=== PATIENT | male | born 1955 | race Caucasian/White ===

== ENCOUNTER 2020-09-10 23:38 | Inpatient (IN) | payer MEDICARE, SELFPAY ==
[2020-09-11 00:10] LABS: BASOPHIL 0.3 % (0-2); EOSINOPHIL 1.5 % (0-5); HGB 17.4 g/dl (13.2-18.0); LYMPHOCYTE 37.6 % (15-48); MCH 28.1 pg (25.0-31.0); MCV 93.5 fL (78.0-100.0); MONOCYTE 6.9 % (0-12); MPV 10.5 fL (6.0-9.5); NEUTROPHIL 53.1 % (41-80); NRBC 0; PLT 218 K/uL (150-400); RDW 19.4 % (11.5-14.0)
[2020-09-11 00:27] LABS: ALBUMIN 3.8 g/dL (3.4-5.0); BILIRUBIN - TOTAL 0.3 mg/dL (0.2-1.0); BUN/CREAT RATIO (CALC) 16.9 RATIO; CREATININE 1.24 mg/dL (0.67-1.17); POTASSIUM 4.2 mmol/L (3.5-5.1); TOTAL PROTEIN 7.8 g/dL (6.4-8.2)
[2020-09-11 00:38] LABS: LACTIC ACID 7.1 mmol/L (0.4-1.9)
[2020-09-11 00:42] LABS: WBC 15.5 K/uL (4.0-10.5)
[2020-09-11 00:49] LABS: INR 1.02 (0.9-1.2); PROTHROMBIN TIME 12.7 SECONDS (11.4-13.6); PTT 23.5 SECONDS (22.2-34.7)
[2020-09-11 01:04] LABS: D-DIMER 5.24 ug/mLFEU (0.00-0.41)
[2020-09-11 01:44] LABS: MAGNESIUM 2.5 mg/dL (1.8-2.4); PHOSPHORUS 7.4 mg/dL (2.6-4.7)
[2020-09-11 02:01] LABS: BILIRUBIN NEGATIVE (NEGATIVE); BLOOD 3+ Ery/uL (NEGATIVE); CLARITY CLEAR (CLEAR); COLOR YELLOW (YELLOW); GLUCOSE (U) NORMAL (NORMAL); LEUKOCYTES NEGATIVE Leu/uL (NEGATIVE); NITRITE NEGATIVE (NEGATIVE); PROTEIN 1+ mg/dL (NEGATIVE); UROBILINOGEN 0.2 mg/dL (0.2-1.0)
[2020-09-11 02:09] LABS: BACTERIA TRACE; MUCOUS TRACE; URINARY RBC 20-50
[2020-09-11] MEDS ORDERED: AMIODARONE HCL200 MG PO (07:33)
[2020-09-11] MEDS ORDERED: ABILIFY5 MG PO (07:34)
[2020-09-11] MEDS ORDERED: ASPIRIN CHEWABL81 MG PO (07:35)
[2020-09-11] MEDS ORDERED: BUMEX1 MG PO (07:36)
[2020-09-11] MEDS ORDERED: BUSPIRONE HCL15 MG PO (07:40)
[2020-09-11] MEDS ORDERED: LEXAPRO20 MG PO (07:41)
[2020-09-11] MEDS ORDERED: FOLIC ACID1 MG PO (07:42)
[2020-09-11] MEDS ORDERED: ZESTRIL5 MG PO (07:42)
[2020-09-11] MEDS ORDERED: TOPROL XL 25MG25 MG PO (07:44)
[2020-09-11] MEDS ORDERED: K-DUR20 MEQ PO (07:46)
[2020-09-11] MEDS ORDERED: TOPIRAMATE50 MG PO (07:48)
[2020-09-11] MEDS ORDERED: ALDACTONE25 MG PO (07:48)
[2020-09-11] MEDS ORDERED: OXY-IR 5MG5 MG PO (07:51)
[2020-09-11] MEDS ORDERED: CRESTOR10 M1 PO (07:53)
[2020-09-11] MEDS ORDERED: NIACIN500 MG PO (07:54)
[2020-09-11] MEDS ORDERED: NEURONTIN300 MG PO (07:55)
[2020-09-11] MEDS ORDERED: REMERON15 MG PO (07:55)
[2020-09-11] MEDS ORDERED: INCRUSE ELLI62.5 MCG INH (07:56)
[2020-09-11] MEDS ORDERED: VENTOLIN HFA IN18 GM INH (08:01)
[2020-09-11] MEDS ORDERED: ACETAMINOPHEN325 MG PO (08:02)
[2020-09-11] MEDS ORDERED: SENNA8.6 MG PO (08:03)
[2020-09-11] MEDS ORDERED: NITROQUIK SL0.4 MG SL (08:04)
[2020-09-11 09:01] LABS: BUN/CREAT RATIO (CALC) 20.6 RATIO; CREATININE 1.26 mg/dL (0.67-1.17); POTASSIUM 4.3 mmol/L (3.5-5.1)
--- NOTE | 2020-09-11 11:56 | NUR ---
RECENTLY MOVED TO [facility]; ASSIST WITH [facility]S
--- NOTE | 2020-09-11 15:35 | NUR ---
SPOKE WITH PT AND HIS POA, RODNEY PETERSEN, WHO IS ALSO HIS POA. THEY ADVISED THAT PT. WILL GO BACK TO [facility]. HE HAS A ROLLATOR AND CANE. HE IS BEING SEEN BY KAROLINA MARTINEZ WITH [facility]. HE WILL ALSO BE USING [facility].
--- NOTE | 2020-09-11 15:39 | NUR ---
PT. AND BROTHER REQUEST [facility] IF ORDERED.
[2020-09-12 04:37] LABS: BASOPHIL 0.1 % (0-2); HCT 43.5 % (42.0-52.0); HGB 13.4 g/dl (13.2-18.0); LYMPHOCYTE 25.4 % (15-48); MCH 28.3 pg (25.0-31.0); MCHC 30.8 g/dL (32.0-36.0); MCV 91.8 fL (78.0-100.0); MONOCYTE 8.3 % (0-12); MPV 11.1 fL (6.0-9.5); NEUTROPHIL 64.8 % (41-80); NRBC 0; PLT 120 K/uL (150-400); RBC 4.74 M/uL (4.70-6.00); RDW 18.6 % (11.5-14.0); WBC 8.1 K/uL (4.0-10.5)
[2020-09-12 05:09] LABS: BUN/CREAT RATIO (CALC) 21.7 RATIO; CREATININE 1.29 mg/dL (0.67-1.17); POTASSIUM 3.4 mmol/L (3.5-5.1)
[2020-09-12] MEDS ORDERED: NIACIN500 M1 PO (06:53)
--- NOTE | 2020-09-12 12:05 | NUR ---
PT. TO [facility] D/C HOME ON TUESDAY, PLEASE CONTACT [facility] TO ADVISE OF D/C. [phone].
[2020-09-12] MEDS ORDERED: PLAVIX75 MG PO (12:07)
[2020-09-12] MEDS ORDERED: IMDUR 30MG TABL30 MG PO (12:10)
[2020-09-12] MEDS ORDERED: NIASPAN1000 MG PO ×2 (12:13→14:51)
[2020-09-12] MEDS ORDERED: THERA M PLUS T1 EACH PO ×2 (12:18→14:51)
[2020-09-12] MEDS ORDERED: LASIX40 MG PO (12:20)
--- NOTE | 2020-09-12 13:55 | NUR ---
PT. IS EXPECTED TO D/C OVER THE WEEKEND. HE IS GOING TO GO BACK TO [facility] PER HIS BROTHER. A REFERRAL HAS BEEN MADE TO [facility] FOR NURSING ASSESSMENT. PLEASE CALL [facility] AT [phone] IF PT. D/C OVER WEEKEND.
--- NOTE | 2020-09-12 14:06 | NUR ---
HH REFERRAL SENT THROUGH [facility].
[2020-09-12] MEDS ORDERED: TOPROL XL 25MG25 MG PO (14:51)
[2020-09-12] MEDS ORDERED: BUSPIRONE HCL15 MG PO (14:51)
[2020-09-12] MEDS ORDERED: NEURONTIN300 MG PO (14:51)
[2020-09-12] MEDS ORDERED: SENNA8.6 MG PO (14:51)
[2020-09-12] MEDS ORDERED: BUMEX1 MG PO (14:51)
[2020-09-12] MEDS ORDERED: ASPIRIN CHEWABL81 MG PO (14:51)
[2020-09-12] MEDS ORDERED: OXY-IR 5MG5 MG PO (14:51)
[2020-09-12] MEDS ORDERED: REMERON15 MG PO (14:51)
[2020-09-12] MEDS ORDERED: FOLIC ACID1 MG PO (14:51)
[2020-09-12] MEDS ORDERED: K-DUR20 MEQ PO (14:51)
[2020-09-12] MEDS ORDERED: CRESTOR10 M1 PO (14:51)
[2020-09-12] MEDS ORDERED: INCRUSE ELLI62.5 MCG INH (14:51)
[2020-09-12] MEDS ORDERED: ENTRESTO 49 MG1 EACH PO (14:51)
[2020-09-12] MEDS ORDERED: NITROQUIK SL0.4 MG SL (14:51)
[2020-09-12] MEDS ORDERED: TOPIRAMATE50 MG PO (14:51)
[2020-09-12] MEDS ORDERED: VENTOLIN HFA IN18 GM INH (14:51)
[2020-09-12] MEDS ORDERED: ALDACTONE25 MG PO (14:51)
[2020-09-12] MEDS ORDERED: ABILIFY5 MG PO (14:51)
[2020-09-12] MEDS ORDERED: LEXAPRO20 MG PO (14:51)
[2020-09-12] MEDS ORDERED: AMIODARONE HCL200 MG PO (14:51)
[2020-09-13 04:57] LABS: BUN/CREAT RATIO (CALC) 19.4 RATIO; CREATININE 1.24 mg/dL (0.67-1.17); POTASSIUM 3.5 mmol/L (3.5-5.1)
--- NOTE | 2020-09-13 15:47 | NUR ---
[address] [facility] WITH HOME HEALTH SERVICES. IV DC'D AT THIS TIME. PT TRANSPORTED BY WHEELCHAIR TO [facility]. DISCHARGED INSTRUCTIONS REVIEWED WITH PT, VERBALIZED UNDERSTANDING.
== END 2020-09-13 15:30 | disposition home health service (06) | DRG 280 ==
LOC: FER 23:38 → FICU 09-11 05:12 → FTCU 09-12 17:36
PROVIDERS: Allergy & Immunology Allergy; Emergency Medicine Emergency Medical Services; Nurse Practitioner; ADMIT Internal Medicine
PROC: 5A09357 Assistance with Respiratory Ventilation, Less than 24 Consecutive Hours, Continuous Positive Airway Pressure (ICD-10-PCS; principal; 2020-09-11)
PROC: B24BZZZ Ultrasonography of Heart with Aorta (ICD-10-PCS; 2020-09-11)
DX: I13.0 Hypertensive heart and chronic kidney disease with heart failure and stage 1 through stage 4 chronic kidney disease, or unspecified chronic kidney disease (principal); I50.23 Acute on chronic systolic (congestive) heart failure; I21.A1 Myocardial infarction type 2; J18.9 Pneumonia, unspecified organism; J96.01 Acute respiratory failure with hypoxia; J96.02 Acute respiratory failure with hypercapnia; J44.0 Chronic obstructive pulmonary disease with (acute) lower respiratory infection; Z20.822 Contact with and (suspected) exposure to COVID-19; I25.10 Atherosclerotic heart disease of native coronary artery without angina pectoris; G40.909 Epilepsy, unspecified, not intractable, without status epilepticus; N18.9 Chronic kidney disease, unspecified; F41.1 Generalized anxiety disorder; F32.9 Major depressive disorder, single episode, unspecified; F17.290 Nicotine dependence, other tobacco product, uncomplicated; Z51.5 Encounter for palliative care; Z86.73 Personal history of transient ischemic attack (TIA), and cerebral infarction without residual deficits; Z98.890 Other specified postprocedural states; Z88.0 Allergy status to penicillin; Z95.1 Presence of aortocoronary bypass graft
CPT/HCPCS: 36415; 36600; 71045; 80048; 80053; 80061; 81001; 82803; 83036; 83605; 83735; 83880; 84100; 84145; 84443; 84484; 85025; 85379; 85610; 85730; 87040; 87088; 93005; 94640; 94660; 96372; 96374; 96375; 97162; 97530-GP; J0696; J1644; J1650; J1940; J2270; J7050; U0002

== ENCOUNTER 2021-05-15 15:28 | Inpatient (IN) | payer MEDICARE ==
[~2021-05-15] VITALS: Ht 162.6 cm; Wt 88.2 kg
[~2021-05-15 15:28] MED LIST: ABILIFY5 MG PO; ACETAMINOPHEN325 MG PO; ALDACTONE25 MG PO; AMIODARONE HCL200 MG PO; ASPIRIN CHEWABL81 MG PO; BUMEX1 MG PO; BUSPIRONE HCL15 MG PO; CRESTOR10 M1 PO; ENTRESTO 49 MG1 EACH PO; FOLIC ACID1 MG PO; IMDUR 30MG TABL30 MG PO; INCRUSE ELLI62.5 MCG INH; K-DUR20 MEQ PO; LASIX40 MG PO; LEXAPRO20 MG PO; NEURONTIN300 MG PO; NIACIN500 M1 PO; NIACIN500 MG PO; NIASPAN1000 MG PO; NITROQUIK SL0.4 MG SL; OXY-IR 5MG5 MG PO; PLAVIX75 MG PO; REMERON15 MG PO; SENNA8.6 MG PO; THERA M PLUS T1 EACH PO; TOPIRAMATE50 MG PO; TOPROL XL 25MG25 MG PO; VENTOLIN HFA IN18 GM INH; ZESTRIL5 MG PO
[2021-05-15 16:02] LABS: BASOPHIL 0.1 % (0-2); EOSINOPHIL 0.8 % (0-5); HGB 14.6 g/dl (13.2-18.0); LYMPHOCYTE 18.9 % (15-48); MCHC 32.4 g/dL (32.0-36.0); MCV 98.7 fL (78.0-100.0); MONOCYTE 5.1 % (0-12); MPV 10.6 fL (6.0-9.5); NEUTROPHIL 74.4 % (41-80); NRBC 0; PLT 130 K/uL (150-400); RBC 4.56 M/uL (4.70-6.00); RDW 13.3 % (11.5-14.0); WBC 10.6 K/uL (4.0-10.5)
[2021-05-15 16:09] LABS: INR 1.13 (0.9-1.2); PROTHROMBIN TIME 13.9 SECONDS (11.8-13.4); PTT 26.4 SECONDS (24.4-34.7)
[2021-05-15 16:10] LABS: D-DIMER 0.4 ug/mLFEU (0.00-0.41)
[2021-05-15 16:22] LABS: PRO-BNP 707 pg/mL (<125)
[2021-05-15 16:33] LABS: BILIRUBIN NEGATIVE (NEGATIVE); BLOOD NEGATIVE Ery/uL (NEGATIVE); CLARITY CLEAR (CLEAR); COLOR YELLOW (YELLOW); GLUCOSE (U) NORMAL (NORMAL); LEUKOCYTES NEGATIVE Leu/uL (NEGATIVE); NITRITE NEGATIVE (NEGATIVE); PROTEIN NEGATIVE (NEGATIVE); SPECIFIC GRAVITY <=1.005 (1.001-1.030); UROBILINOGEN 0.2 mg/dL (0.2-1.0)
[2021-05-15 16:39] LABS: LACTIC ACID 1.2 mmol/L (0.4-1.9)
[2021-05-15 16:57] LABS: ALBUMIN 2.8 g/dL (3.4-5.0); ALKALINE PHOSHATASE 32 U/L (46-116); ALT 29 U/L (16-63); AST 18 U/L (15-37); BILIRUBIN - TOTAL 0.2 mg/dL (0.2-1.0); BUN 44 mg/dL (7-18); BUN/CREAT RATIO (CALC) 21.4 RATIO; CHLORIDE 106 mmol/L (98-107); CO2 (BICARBONATE) 26 mmol/L (21-32); CPK 63 U/L (39-308); CREATININE 2.06 mg/dL (0.67-1.17); GLOBULIN (CALCULATION) 2.3 g/dL; GLUCOSE 190 mg/dL (74-106); LDH 224 U/L (85-227); LIPASE 128 U/L (73-393); POTASSIUM 4.8 mmol/L (3.5-5.1); TOTAL PROTEIN 5.1 g/dL (6.4-8.2)
[2021-05-15 16:58] LABS: C-REACTIVE PROTEIN < 0.20 mg/dL (<=0.90)
[2021-05-15] MEDS ORDERED: ELIQUIS5 MG PO (22:52)
[2021-05-15] MEDS ORDERED: NIACIN500 MG PO (22:53)
[2021-05-15] MEDS ORDERED: UROCIT-K10 MEQ PO (22:53)
[2021-05-15] MEDS ORDERED: LISINOPRIL5 MG PO (22:54)
[2021-05-16 04:29] LABS: BASOPHIL 0.1 % (0-2); EOSINOPHIL 0 % (0-5); HGB 16.1 g/dl (13.2-18.0); LYMPHOCYTE 10.6 % (15-48); MCH 31.2 pg (25.0-31.0); MCHC 31.6 g/dL (32.0-36.0); MCV 98.8 fL (78.0-100.0); MONOCYTE 5.2 % (0-12); MPV 10.3 fL (6.0-9.5); NEUTROPHIL 83.3 % (41-80); NRBC 0; PLT 142 K/uL (150-400); RBC 5.16 M/uL (4.70-6.00); RDW 13.3 % (11.5-14.0); WBC 10.5 K/uL (4.0-10.5)
[2021-05-16 04:56] LABS: BILIRUBIN - TOTAL 0.2 mg/dL (0.2-1.0); BUN/CREAT RATIO (CALC) 21.5 RATIO; CREATININE 1.44 mg/dL (0.67-1.17); GLOBULIN (CALCULATION) 3.3 g/dL; POTASSIUM 4.8 mmol/L (3.5-5.1); TOTAL PROTEIN 6.3 g/dL (6.4-8.2)
[2021-05-17 04:07] LABS: BASOPHIL 0.2 % (0-2); EOSINOPHIL 0 % (0-5); HCT 50.8 % (42.0-52.0); HGB 15.9 g/dl (13.2-18.0); LYMPHOCYTE 12.7 % (15-48); MCH 30.9 pg (25.0-31.0); MCHC 31.3 g/dL (32.0-36.0); MCV 98.8 fL (78.0-100.0); MPV 10.1 fL (6.0-9.5); NEUTROPHIL 79.5 % (41-80); NRBC 0; PLT 116 K/uL (150-400); RBC 5.14 M/uL (4.70-6.00); RDW 13.2 % (11.5-14.0); WBC 12.1 K/uL (4.0-10.5)
[2021-05-17 04:15] LABS: BUN/CREAT RATIO (CALC) 19.4 RATIO; CREATININE 1.08 mg/dL (0.67-1.17); POTASSIUM 4.7 mmol/L (3.5-5.1)
[2021-05-18 05:59] LABS: BASOPHIL 0.2 % (0-2); EOSINOPHIL 1.4 % (0-5); HCT 49.6 % (42.0-52.0); HGB 15.6 g/dl (13.2-18.0); LYMPHOCYTE 26.1 % (15-48); MCHC 31.5 g/dL (32.0-36.0); MCV 98.6 fL (78.0-100.0); MONOCYTE 6.8 % (0-12); NEUTROPHIL 64.9 % (41-80); NRBC 0; PLT 111 K/uL (150-400); RBC 5.03 M/uL (4.70-6.00); RDW 13.5 % (11.5-14.0); WBC 8.9 K/uL (4.0-10.5)
[2021-05-18 06:13] LABS: BUN/CREAT RATIO (CALC) 17.2 RATIO; CREATININE 0.99 mg/dL (0.67-1.17); POTASSIUM 4.3 mmol/L (3.5-5.1)
[2021-05-20 04:06] LABS: BASOPHIL 0.1 % (0-2); EOSINOPHIL 1.6 % (0-5); HCT 53.3 % (42.0-52.0); LYMPHOCYTE 23.7 % (15-48); MCH 31.3 pg (25.0-31.0); MCHC 31.9 g/dL (32.0-36.0); MONOCYTE 6.6 % (0-12); MPV 9.9 fL (6.0-9.5); NEUTROPHIL 67.3 % (41-80); NRBC 0; PLT 124 K/uL (150-400); RBC 5.44 M/uL (4.70-6.00); RDW 13.2 % (11.5-14.0); WBC 10.1 K/uL (4.0-10.5)
[2021-05-20 04:14] LABS: BUN/CREAT RATIO (CALC) 16.3 RATIO; CREATININE 1.04 mg/dL (0.67-1.17)
--- NOTE | 2021-05-20 23:36 | NUR ---
05/20/211999 REPORT CALLED TO BESSY ALARCON RN AT [facility] ROOM [id number]. PT SITTING IN ROOM ON LAPTOP AT THIS TIME IN NO DISTRESS. 05/20/212119 [facility] ARRIVED AT THIS TIME. PT LOADED ONTO STRETCHER W/ ALL BELONGINGS. LEFT AT THIS TIME W/ NO COMPLICATIONS.
== END 2021-05-20 21:22 | disposition other institution (70) | DRG 682 ==
LOC: FER 15:28 → FTCU 20:57
PROVIDERS: Emergency Medicine; Internal Medicine; Nurse Practitioner; ADMIT Internal Medicine
PROC: 3E033XZ Introduction of Vasopressor into Peripheral Vein, Percutaneous Approach (ICD-10-PCS; principal; 2021-05-15)
DX: N17.9 Acute kidney failure, unspecified (principal); R57.1 Hypovolemic shock; I13.0 Hypertensive heart and chronic kidney disease with heart failure and stage 1 through stage 4 chronic kidney disease, or unspecified chronic kidney disease; J44.1 Chronic obstructive pulmonary disease with (acute) exacerbation; I50.22 Chronic systolic (congestive) heart failure; E86.0 Dehydration; Z20.822 Contact with and (suspected) exposure to COVID-19; I95.2 Hypotension due to drugs; T50.2X5A Adverse effect of carbonic-anhydrase inhibitors, benzothiadiazides and other diuretics, initial encounter; T44.7X5A Adverse effect of beta-adrenoreceptor antagonists, initial encounter; T46.4X5A Adverse effect of angiotensin-converting-enzyme inhibitors, initial encounter; I25.5 Ischemic cardiomyopathy; I25.10 Atherosclerotic heart disease of native coronary artery without angina pectoris; N18.30 Chronic kidney disease, stage 3 unspecified; E78.5 Hyperlipidemia, unspecified; G40.909 Epilepsy, unspecified, not intractable, without status epilepticus; I48.0 Paroxysmal atrial fibrillation; F41.1 Generalized anxiety disorder; I51.3 Intracardiac thrombosis, not elsewhere classified; F32.9 Major depressive disorder, single episode, unspecified; F10.11 Alcohol abuse, in remission; F17.290 Nicotine dependence, other tobacco product, uncomplicated; Z95.810 Presence of automatic (implantable) cardiac defibrillator; Z87.01 Personal history of pneumonia (recurrent); I25.2 Old myocardial infarction; Z95.1 Presence of aortocoronary bypass graft; Z86.73 Personal history of transient ischemic attack (TIA), and cerebral infarction without residual deficits; Z98.890 Other specified postprocedural states; Z80.8 Family history of malignant neoplasm of other organs or systems; Z88.0 Allergy status to penicillin; Z88.1 Allergy status to other antibiotic agents
CPT/HCPCS: 36415; 36600; 71045; 71250; 80048; 80053; 81003; 82550; 82728; 82803; 83605; 83615; 83690; 83735; 83880; 84145; 84443; 84484; 85025; 85379; 85610; 85730; 86140; 87040; 93005; 94640; 94760; 94762; 97110; 97162; 97166; 97530; 97530-GP; J1720; J7512; U0002

== ENCOUNTER 2022-02-08 16:40 | Emergency (ER) | payer MEDICARE ==
[~2022-02-08 16:40] MED LIST changes: +ELIQUIS5 MG PO; +LISINOPRIL5 MG PO; +UROCIT-K10 MEQ PO
[2022-02-08 17:15] LABS: BASOPHIL 0.1 % (0-2); EOSINOPHIL 1.4 % (0-7); HCT 35.8 % (42.0-52.0); HGB 11.2 g/dl (13.2-18.0); LYMPHOCYTE 24.1 % (15-48); MCH 32.7 pg (25.0-31.0); MCHC 31.3 g/dL (32.0-36.0); MCV 104.4 fL (78.0-100.0); MONOCYTE 7.6 % (0-12); MPV 10.3 fL (6.0-9.5); NEUTROPHIL 66.4 % (41-80); NRBC 0; PLT 117 K/uL (150-400); RBC 3.43 M/uL (4.70-6.00); RDW 13.2 % (11.5-14.0)
[2022-02-08 17:19] LABS: INR 1.33 (0.9-1.2); PROTHROMBIN TIME 15.8 SECONDS (11.8-13.4); PTT 30.6 SECONDS (24.4-34.7)
[2022-02-08 17:39] LABS: ALBUMIN 3.3 g/dL (3.4-5.0); BILIRUBIN - TOTAL 0.3 mg/dL (0.2-1.0); BUN/CREAT RATIO (CALC) 12.6 RATIO; CREATININE 4.85 mg/dL (0.67-1.17); FT4 (FREE T4) 1.1 ng/dL (0.76-1.46); GLOBULIN (CALCULATION) 3.3 g/dL; MAGNESIUM 2.4 mg/dL (1.8-2.4); POTASSIUM 5.7 mmol/L (3.5-5.1); TOTAL PROTEIN 6.6 g/dL (6.4-8.2)
[2022-02-08 17:55] LABS: LACTIC ACID 0.8 mmol/L (0.4-1.9)
[2022-02-08 21:10] LABS: BILIRUBIN NEGATIVE (NEGATIVE); BLOOD TRACE-INTACT Ery/uL (NEGATIVE); CLARITY CLEAR (CLEAR); COLOR YELLOW (YELLOW); GLUCOSE (U) NORMAL (NORMAL); LEUKOCYTES NEGATIVE Leu/uL (NEGATIVE); NITRITE NEGATIVE (NEGATIVE); PROTEIN 1+ mg/dL (NEGATIVE); SPECIFIC GRAVITY 1.015 (1.001-1.030); UROBILINOGEN 0.2 mg/dL (0.2-1.0)
[2022-02-08 21:14] LABS: AMORPHOUS URATES CRYSTALS TRACE; BACTERIA 1+
== END 2022-02-08 23:48 | disposition other institution (70) ==
LOC: FER 16:40
PROVIDERS: Emergency Medicine
DX: I95.9 Hypotension, unspecified (principal); N17.9 Acute kidney failure, unspecified; R57.0 Cardiogenic shock; I42.9 Cardiomyopathy, unspecified; F17.210 Nicotine dependence, cigarettes, uncomplicated; N18.9 Chronic kidney disease, unspecified; Z20.822 Contact with and (suspected) exposure to COVID-19; Z88.0 Allergy status to penicillin
CPT/HCPCS: 36415; 71045; 80053; 81001; 83605; 83735; 83880; 84145; 84439; 84443; 84484; 85025; 85610; 85730; 87040; 93005; J7030; U0002